=== PATIENT | male | born 1995 | race African-American/Black ===

== ENCOUNTER 2023-03-29 02:15 | Emergency (ER) | payer OTHER ==
[~2023-03-29] VITALS: Ht 172.7 cm; Wt 70.0 kg
[2023-03-29 02:26] VITALS: O2SAT 98
[2023-03-29] MEDS ORDERED: ONDANSETRON HCL 4MG/2ML INJ IV STA (03:42)
[2023-03-29] MEDS ORDERED: MORPHINE SULFATE 4 MG/ML CPJ (NOT FOR IM USE) IV STA (03:42)
[2023-03-29] MEDS ORDERED: SODIUM CHLORIDE 0.9% 1,000 ML IV ONE (03:45)
[2023-03-29 04:22] LABS: ALANINE AMINOTRANSFERASE 62 IU/L (10-49); ALBUMIN 4.5 g/dL (3.2-4.8); ASPARTATE AMINOTRANSFERASE 37 IU/L (<34); BILIRUBIN TOTAL 0.5 mg/dL (0.1-1.0); CARBON DIOXIDE 27 mEq/L (21-32); CHLORIDE 104 mEq/L (98-107); CREATININE 0.9 mg/dL (0.6-1.3); GLUCOSE 101 mg/dL (70-105); POTASSIUM 3.5 mEq/L (3.5-5.1); PROTEIN TOTAL 7.8 g/dL (6.0-8.3); SODIUM 138 mEq/L (136-145); UREA NITROGEN BLOOD 13 mg/dL (9-23)
[2023-03-29] MEDS ORDERED: METH-653 MT (06:14)
[2023-03-29] MEDS ORDERED: IBUP-2029 MT (06:14)
[2023-03-29 06:43] VITALS: BP 142/74; PULSE 76; RESP 16; TEMP 97.6
== END 2023-03-29 06:44 | disposition home or self-care (01) ==
LOC: ER 02:15
DX: S29.9XXA Unspecified injury of thorax, initial encounter (principal); S39.91XA Unspecified injury of abdomen, initial encounter; V99.XXXA Unspecified transport accident, initial encounter; Y93.9 Activity, unspecified; Y92.89 Other specified places as the place of occurrence of the external cause; Y99.8 Other external cause status
CPT/HCPCS: 99291; 71260; 96374; 71045; 96361; 96375; 80053; 83690; 36415; 74177; J2405; J2270; J7030